=== PATIENT | female | born 1965 | race Caucasian/White ===

== ENCOUNTER 2017-10-19 16:54 | Emergency (ER) | payer BC ==
[~2017-10-19] VITALS: Ht 162.6 cm; Wt 88.5 kg
[~2017-10-19 16:54] MED LIST: NORCO 5/3251 TABLET PO; PRILOSEC10 MG PO; ZYRTEC10 M3 PO
[2017-10-19 17:22] LABS: APPEARANCE CLEAR ((CLEAR)); BILIRUBIN NEGATIVE; BLOOD NEGATIVE; COLOR YELLOW ((YELLOW)); GLUCOSE (STRIP) NEGATIVE; KETONES NEGATIVE; LEUKOCYTES NEGATIVE; NITRITE NEGATIVE; PROTEIN (STRIP) NEGATIVE; SPECIFIC GRAVITY 1.015 (1.000-1.030); UCUL ADDED? NO; UROBILINOGEN 0.2 MG/DL (0.2-1.0)
[2017-10-19 17:35] LABS: HEMATOCRIT 37.6 % (36.0-46.0); HEMOGLOBIN 13.3 G/DL (11.9-15.5); MCH 33.2 PG (29.0-34.0); MCHC 35.4 G/DL (30.0-36.0); MCV 93.8 FL (83-99); PLATELET COUNT 322 K/uL (156-360); RBC DIS.WIDTH-CV 12.2 % (11.8-14.6); RBC DIS.WIDTH-SD 42.6 % (39-53); RED BLOOD COUNT 4.01 M/uL (3.80-5.20); WHITE BLOOD COUNT 8.6 K/uL (4.1-10.2)
[2017-10-19 17:47] LABS: ALBUMIN 4.3 g/dL (3.2-4.8); CHLORIDE 105 mEq/L (99-109); POTASSIUM 4.1 mEq/L (3.7-5.4); SODIUM 141 mEq/L (136-147)
[2017-10-19 17:50] LABS: GLUCOSE 104 mg/dL (70-99); TOTAL PROTEIN 7.4 g/dL (6.4-8.3)
[2017-10-19 17:51] LABS: TOTAL BILIRUBIN 0.5 mg/dL (0.0-1.0)
[2017-10-19 17:53] LABS: ALKALINE PHOSPHATASE 106 IU/L (3-129); GFR ESTIMATE (CALCULATED) > 59 mL/min/
[2017-10-19 17:54] LABS: UREA NITROGEN (BUN) 18 mg/dL (9-23)
[2017-10-19 17:55] LABS: AST (GOT) 23 IU/L (2-34)
[2017-10-19 17:56] LABS: ALT (GPT) 19 IU/L (3-49)
[2017-10-19 18:03] LABS: QUANTITATIVE HCG < 4.0 MIU/ML
[2017-10-19 18:31] LABS: LIPASE 35 U/L (1.0-51.0)
[2017-10-19 21:10] LABS: AMYLASE 46 IU/L (1-118)
[2017-10-19] MEDS ORDERED: ZOFRAN ODT4 MG PO (21:21)
[2017-10-19] MEDS ORDERED: PERCOCET 5/31 TABLET PO (21:21)
[2017-10-19] MEDS ORDERED: BENTYL10 MG PO (21:40)
[2017-10-19 21:41] VITALS: BP 165/72
== END 2017-10-19 21:49 | disposition home or self-care (01) ==
LOC: EME 16:54
DX: R10.10 Upper abdominal pain, unspecified (principal); K21.9 Gastro-esophageal reflux disease without esophagitis; Z86.718 Personal history of other venous thrombosis and embolism; F17.200 Nicotine dependence, unspecified, uncomplicated
CPT/HCPCS: 74177; 80053; 81003; 82150; 83690; 84702; 85027; 99281; 99284; J1885; J2405; J7030